=== PATIENT | female | born 1980 | race Caucasian/White ===

== ENCOUNTER 2017-07-08 09:57 | Emergency (ER) | payer MEDICAID, OTHER ==
[~2017-07-08] VITALS: Ht 167.6 cm; Wt 150.1 kg
[2017-07-08 10:01] VITALS: BP 154/89
[2017-07-08] MEDS ORDERED: IBUPROFEN 200 MG TABLET PO ONE (11:00)
== END 2017-07-08 11:27 | disposition home or self-care (01) ==
LOC: ED 11:20
DX: J20.9 Acute bronchitis, unspecified (principal); J02.9 Acute pharyngitis, unspecified; J00 Acute nasopharyngitis [common cold]
CPT/HCPCS: 71020; 99284

== ENCOUNTER 2018-12-28 21:40 | Emergency (ER) | payer MEDICAID ==
[~2018-12-28] VITALS: Ht 167.6 cm; Wt 158.2 kg
[2018-12-29 00:06] LABS: BASOPHILS # (AUTO) 0.08 x10^3/uL (0-0.1); BASOPHILS % (AUTO) 1 % (0-1); EOSINOPHILS # (AUTO) 0.31 x10^3/uL (0-0.4); EOSINOPHILS % (AUTO) 3 % (1-7); LYMPHOCYTES # (AUTO) 2.88 x10^3/uL (1-3.4); LYMPHOCYTES % (AUTO) 29 % (22-44); MD NO; MEAN CORPUSCULAR HGB CONC 31.9 g/dL (32.4-35.8); MEAN CORPUSCULAR VOLUME 84.6 fL (80-100); MEAN PLATELET VOLUME 8.4 fL (7.4-10.4); MONOCYTES # (AUTO) 0.57 x10^3/uL (0.2-0.8); MONOCYTES % (AUTO) 6 % (2-9); NEUTROPHILS # (AUTO) 6.01 x10^3/uL (1.8-6.8); NEUTROPHILS % (AUTO) 61 % (42-75); PLATELET COUNT 355 x10^3/uL (130-400); RED BLOOD COUNT 4.68 x10^6/uL (3.82-5.3); RED CELL DISTRIBUTION WIDTH 15.8 % (9.6-15.2)
[2018-12-29 00:10] LABS: ALBUMIN 3.1 g/dL (3.4-5.0); ANION GAP 5 mmol/L (5-15); CALCIUM 8.5 mg/dL (8.5-10.1); CHLORIDE 109 mmol/L (98-107)
[2018-12-29 00:14] LABS: ALANINE AMINOTRANSFERASE 26 U/L (12-78); ALKALINE PHOSPHATASE 81 U/L (45-117); BILIRUBIN,TOTAL 0.1 mg/dL (0.2-1.0); CREATININE 0.87 mg/dL (0.55-1.02); TOTAL PROTEIN 7.1 g/dL (6.4-8.2)
[2018-12-29 00:30] VITALS: BP 146/68
--- NOTE | 2018-12-29 00:32 | NUR ---
Cp substernalx3 days w/ associated sob. Burning into throat and worse while lying down. MONITORS APPLIED, SIDERALS UP X2, CALL LIGHT WITHIN REACH
[2018-12-29] MEDS ORDERED: MELO15TA24 PO (00:36)
[2018-12-29] MEDS ORDERED: PRAZ5CAP2 PO (00:36)
[2018-12-29] MEDS ORDERED: TRAZ-137 PO (00:36)
[2018-12-29] MEDS ORDERED: BUSP15TA PO (00:36)
[2018-12-29] MEDS ORDERED: FAMOTIDINE 20 MG TABLET ONE (00:39)
[2018-12-29] MEDS ORDERED: MAALOX/HYOSCYAMINE/LIDOCAINE 45 ML BTL ONE (00:39)
[2018-12-29] MEDS ORDERED: PANTOPRAZOLE 20MG TABLET ONE (00:43)
[2018-12-29 00:52] LABS: TROPONIN I < 0.015 ng/mL (0.000-0.045)
--- NOTE | 2018-12-29 00:52 | NUR ---
FLOAT RN: PT RESTING IN ROOM. NO ACUTE DISTRESS NOTED. CALL LIGHT IN PLACE. WILL CONTINUE TO MONITOR WHILE PRIMARY RN IS ON BREAK.
[2018-12-29] MEDS ORDERED: MAALOX/HYOSCYAMINE/LIDOCAINE 45 ML BTL PO ONE (01:00)
[2018-12-29] MEDS ORDERED: PANTOPRAZOLE 20MG TABLET PO ONE (01:00)
== END 2018-12-29 01:53 | disposition home or self-care (01) ==
LOC: ED 12-29 01:15
DX: R07.89 Other chest pain (principal); J45.909 Unspecified asthma, uncomplicated; K21.9 Gastro-esophageal reflux disease without esophagitis
CPT/HCPCS: 36415; 71045; 80053; 83690; 84484; 85025; 93005; 99284

== ENCOUNTER 2020-07-04 14:26 | Emergency (ER) | payer MEDICAID ==
[~2020-07-04] VITALS: Ht 167.6 cm; Wt 151.3 kg
[~2020-07-04 14:26] MED LIST: BUSP15TA PO; MELO15TA24 PO; PRAZ5CAP2 PO; TRAZ-175 PO
[2020-07-04 14:30] VITALS: BP 141/81
--- NOTE | 2020-07-04 14:45 | NUR ---
CHILLS/COUGH/BODYACHES, EXPOSED TO +COVID AT WORK
--- NOTE | 2020-07-04 14:57 | NUR ---
DISCHARGED FROM [facility]. EDICATED ON COVID QUARATINE BASICS. EDUCATED ON CLOSE MONITORING OF SYMPTOMS TO RETURN IF SAME OF WORSENING (ESPECIALLY SOB)
== END 2020-07-04 15:01 | disposition home or self-care (01) ==
LOC: ED 14:55
DX: J06.9 Acute upper respiratory infection, unspecified (principal)
CPT/HCPCS: 87635; 99283

== ENCOUNTER 2020-10-08 20:50 | Emergency (ER) | payer MEDICAID ==
[~2020-10-08] VITALS: Ht 167.6 cm; Wt 158.6 kg
--- NOTE | 2020-10-08 21:43 | NUR ---
ERP WAS IN TO SEE PT.
[2020-10-08] MEDS ORDERED: KETOROLAC 30 MG/1 ML ONE (21:52)
[2020-10-08] MEDS ORDERED: KETOROLAC 30 MG/1 ML IM ONE (22:00)
--- NOTE | 2020-10-08 22:00 | NUR ---
PT MEDICATED PER ORDERS. ICE PACK PROVIDED FOR L LOWER LEG. PT HAS STAPH-LIKE RASH TO L KNEE, STATES SHE'S BEEN USING GOLD SAAVEDRA POWDER ON IT. STATES SHE FELL A COUPLE TIMES "INTO SOME RUFINO". WILL NOTIFY
--- NOTE | 2020-10-08 22:36 | NUR ---
US AT BS.
[2020-10-08 23:30] VITALS: BP 155/102
--- NOTE | 2020-10-08 23:32 | NUR ---
ERP AT FOR RECHECK.
== END 2020-10-08 23:46 | disposition home or self-care (01) ==
LOC: ED 21:20
DX: I87.2 Venous insufficiency (chronic) (peripheral) (principal); M25.561 Pain in right knee; R60.0 Localized edema; J45.909 Unspecified asthma, uncomplicated
CPT/HCPCS: 73564; 93971; 96372; 99284; J1885